=== PATIENT | female | born 1990 | race Two or more races ===

== ENCOUNTER 2020-07-09 19:55 | Emergency (ER) | payer OTHER ==
[~2020-07-09] VITALS: Ht 170.2 cm; Wt 59.0 kg
[2020-07-09] MEDS ORDERED: IBU600 MG (20:23)
[2020-07-10] MEDS ORDERED: ZEBUTAL 50-3251 EACH PO (01:09)
== END 2020-07-10 01:16 | disposition home or self-care (01) ==
LOC: ER 19:55
DX: G43.809 Other migraine, not intractable, without status migrainosus (principal); G44.89 Other headache syndrome

== ENCOUNTER 2022-02-21 16:43 | Emergency (ER) | payer OTHER ==
[~2022-02-21] VITALS: Ht 170.2 cm; Wt 57.2 kg
[~2022-02-21 16:43] MED LIST: IBU600 MG; ZEBUTAL 50-3251 EACH PO
[2022-02-21] MEDS ORDERED: MEDROLPACK PO (23:50)
[2022-02-21] MEDS ORDERED: DOLOGESIC 500-1 EACH PO (23:50)
== END 2022-02-21 23:56 | disposition home or self-care (01) ==
LOC: ER 16:43
DX: G43.009 Migraine without aura, not intractable, without status migrainosus (principal); Z91.018 Allergy to other foods

== ENCOUNTER 2024-04-06 19:05 | Emergency (ER) | payer OTHER ==
[~2024-04-06] VITALS: Ht 170.2 cm; Wt 59.0 kg
[~2024-04-06 19:05] MED LIST changes: +DOLOGESIC 500-1 EACH PO; +MEDROLPACK PO
[2024-04-06] MEDS ORDERED: FAMOTIDINE20 MG (19:16)
[2024-04-06] MEDS ORDERED: UBRELVY100 MG (19:16)
[2024-04-06] MEDS ORDERED: AIMOVIG AU70 MG/1 ML (19:17)
[2024-04-06] MEDS ORDERED: DEXAMETHASONE SODIUM PHOSPHATE 4 MG/ML VIAL IM STA (21:52)
[2024-04-06] MEDS ORDERED: ORPHENADRINE CITRATE 30 MG/ML AMPUL IM STA (21:53)
[2024-04-06] MEDS ORDERED: ORPHENADRINE CITRATE 30 MG/ML AMPUL ONE (22:04)
[2024-04-06] MEDS ORDERED: DEXAMETHASONE SODIUM PHOSPHATE 4 MG/ML VIAL ONE (22:05)
[2024-04-07] MEDS ORDERED: NORFLEX100MG PO (05:02)
[2024-04-07] MEDS ORDERED: KETO10TA2 PO (05:02)
== END 2024-04-07 05:07 ==
LOC: ER 19:06
DX: S09.8XXA Other specified injuries of head, initial encounter (principal); V49.88XA Car occupant (driver) (passenger) injured in other specified transport accidents, initial encounter; V89.2XXA Person injured in unspecified motor-vehicle accident, traffic, initial encounter; Y93.89 Activity, other specified; Y92.89 Other specified places as the place of occurrence of the external cause; Y99.8 Other external cause status

== ENCOUNTER 2024-08-20 09:30 | Inpatient (IN) | payer OTHER ==
[~2024-08-20] VITALS: Ht 170.2 cm; Wt 56.7 kg
[~2024-08-20 09:30] MED LIST changes: +AIMOVIG AU70 MG/1 ML; +FAMOTIDINE20 MG; +KETO10TA2 PO; +NORFLEX100MG PO; +UBRELVY100 MG
[2024-08-20 11:16] LABS: PH,URINE 7.5 (5.0-8.0); URINE APPEARANCE Cloudy; URINE BILIRRUBIN Negative (NEGATIVE); URINE BLOOD Negative; URINE COLOR Yellow; URINE GLUCOSE Negative (NEGATIVE); URINE KETONE Negative (NEGATIVE); URINE LEUKOCYTE Moderate; URINE NITRATE Negative; URINE PROTEIN Negative (NEGATIVE); URINE UROBILINOGEN 0.2 E.U./dl
[2024-08-20 11:17] LABS: HEMATOCRIT 42.6 % (36.0-45.00); HEMOGLOBIN 15.1 g/dL (12.0-15.00); MEAN CELL VOLUME 91.3 fL (80.00-100.00); MEAN CORPUSCULAR HEMOGLOBIN 32.4 pg (27.00-32.0); MEAN CORPUSCULAR HGB CONC 35.4 g/dl (32.0-36.0); PLATELET COUNT 220 K/uL (150-450); RED BLOOD COUNT 4.67 M/uL (4.00-6.00); RED CELL DISTRIBUTION WIDTH 12.7 % (11.5-14.5)
[2024-08-20 11:20] LABS: URINE BACTERIA 3803.8 uL (0.0-1933); URINE RBC 18.3 uL (0.0-20.8); URINE WBC 180.1 uL (0.0-23.2)
[2024-08-20 11:40] LABS: INR 1.09; PARTIAL THROMBOPLASTIN TIME 28.8 SECONDS (22.0-34.0); PROTHROMBIN TIME 11.8 SECONDS (9.0-11.5)
[2024-08-20 12:14] LABS: ALBUMIN 4.2 gm/dL (3.4-5.0); BILIRUBIN TOTAL 0.33 mg/dL (0.3-1.2); CALCIUM 9.8 mg/dL (8.5-10.1); CREATININE SERUM 0.59 mg/dL (0.55-1.02); GFR 117.38; GLOBULINA 3.4 G/DL (2.4-3.5); POTASSIUM 4.09 mEq/L (3.5-5.1); TOTAL PROTEIN 7.6 gm/dL (6.4-8.2); TSH 0.378 uIU/mL (0.358-3.74)
[2024-08-26] MEDS ORDERED: CEFOXITIN SODIUM 2,000 MG VIAL IV ONE (13:30)
[2024-08-26] MEDS ORDERED: POVIDONE-IODINE 118 ML BOTT TOP ONE (13:30)
[2024-08-26] MEDS ORDERED: PROMETHAZINE HCL 25 MG/ML AMPUL IV SCH (14:14)
[2024-08-26] MEDS ORDERED: MEPERIDINE HCL/PF 50 MG/ML VIAL IV SCH (14:14)
[2024-08-26] MEDS ORDERED: RINGERS SOLUTION,LACTATED 1,000 ML IV SCH (14:15)
[2024-08-26] MEDS ORDERED: MORPHINE SULFATE 4 MG/ML VIAL IV ONE (14:55)
[2024-08-26] MEDS ORDERED: SIMETHICONE 125 MG CAPSULE PO SCH (17:00)
[2024-08-26 17:24] LABS: HEMATOCRIT 40.1 % (36.0-45.00); HEMOGLOBIN 13.7 g/dL (12.0-15.00); MEAN CELL VOLUME 92.4 fL (80.00-100.00); MEAN CORPUSCULAR HEMOGLOBIN 31.5 pg (27.00-32.0); MEAN CORPUSCULAR HGB CONC 34.1 g/dl (32.0-36.0); PLATELET COUNT 170 K/uL (150-450); RED BLOOD COUNT 4.34 M/uL (4.00-6.00); RED CELL DISTRIBUTION WIDTH 12.8 % (11.5-14.5)
[2024-08-26 19:30] VITALS: BP 130/80; O2SAT 95
[2024-08-27] VITALS: BP 115/79; O2SAT 98
[2024-08-27] MEDS ORDERED: RINGERS SOLUTION,LACTATED 500 ML IV STA (06:58)
[2024-08-27 07:27] LABS: HEMATOCRIT 40.6 % (36.0-45.00); HEMOGLOBIN 13.8 g/dL (12.0-15.00); MEAN CELL VOLUME 92.5 fL (80.00-100.00); MEAN CORPUSCULAR HEMOGLOBIN 31.5 pg (27.00-32.0); PLATELET COUNT 208 K/uL (150-450); RED BLOOD COUNT 4.39 M/uL (4.00-6.00); RED CELL DISTRIBUTION WIDTH 12.6 % (11.5-14.5)
[2024-08-27 08:26] LABS: ALBUMIN 3.7 gm/dL (3.4-5.0); BILIRUBIN TOTAL 0.8 mg/dL (0.3-1.2); CALCIUM 9.3 mg/dL (8.5-10.1); CREATININE SERUM 0.74 mg/dL (0.55-1.02); GFR 90.38; POTASSIUM 4.26 mEq/L (3.5-5.1); TOTAL PROTEIN 6.7 gm/dL (6.4-8.2)
[2024-08-27] MEDS ORDERED: ACETAMINOPHEN WITH CODEINE 1 UDTAB TABLET PO PRN (08:45)
[2024-08-27] MEDS ORDERED: NAPROXEN 500 MG TABLET PO SCH (09:00)
[2024-08-27 09:31] VITALS: BP 122/87; O2SAT 100
[2024-08-27 16:00] VITALS: BP 106/75; O2SAT 100
[2024-08-28 00:12] VITALS: BP 94/64; O2SAT 97
[2024-08-28 08:23] VITALS: BP 95/65; O2SAT 99
[2024-08-28 11:12] LABS: HEMATOCRIT 31.9 % (36.0-45.00); HEMOGLOBIN 11.2 g/dL (12.0-15.00); MEAN CELL VOLUME 91.7 fL (80.00-100.00); MEAN CORPUSCULAR HEMOGLOBIN 32.3 pg (27.00-32.0); MEAN CORPUSCULAR HGB CONC 35.2 g/dl (32.0-36.0); PLATELET COUNT 172 K/uL (150-450); RED BLOOD COUNT 3.48 M/uL (4.00-6.00)
[2024-08-28 12:00] LABS: ALBUMIN 3.3 gm/dL (3.4-5.0); BILIRUBIN TOTAL 0.55 mg/dL (0.3-1.2); CALCIUM 9.1 mg/dL (8.5-10.1); CREATININE SERUM 0.59 mg/dL (0.55-1.02); GFR 117.38; GLOBULINA 2.5 G/DL (2.4-3.5); POTASSIUM 3.55 mEq/L (3.5-5.1); TOTAL PROTEIN 5.8 gm/dL (6.4-8.2)
[2024-08-28] MEDS ORDERED: KETOROLAC TROMETHAMINE 10 MG TABLET PO PRN (12:45)
[2024-08-28] MEDS ORDERED: KETOROLAC TROMETHAMINE 30 MG VIAL IM NR (13:00)
[2024-08-28 16:00] VITALS: BP 114/77; O2SAT 100
[2024-08-29 00:54] VITALS: BP 90/60; O2SAT 96
[2024-08-29 07:36] LABS: HEMATOCRIT 28.6 % (36.0-45.00); HEMOGLOBIN 9.9 g/dL (12.0-15.00); MEAN CELL VOLUME 92.5 fL (80.00-100.00); MEAN CORPUSCULAR HGB CONC 34.6 g/dl (32.0-36.0); PLATELET COUNT 165 K/uL (150-450); RED BLOOD COUNT 3.09 M/uL (4.00-6.00); RED CELL DISTRIBUTION WIDTH 12.8 % (11.5-14.5)
[2024-08-29 08:00] VITALS: BP 105/73; O2SAT 96
[2024-08-29] MEDS ORDERED: Cyanocobalamin/Mecobalamin 1 TAB.SL SL NR (11:00)
[2024-08-29] MEDS ORDERED: SOD FERRIC GLUC COMPLX/SUCROSE 62.5 MG/5 ML AMPUL IV NR (11:00)
[2024-08-29] MEDS ORDERED: ACETAMINOPHEN WITH CODEINE 1 UDTAB TABLET PO PRN (12:00)
[2024-08-29] MEDS ORDERED: ORPHENADRINE CITRATE 30 MG/ML AMPUL IM NR (13:00)
[2024-08-29 16:00] VITALS: BP 101/67; O2SAT 100
[2024-08-29 17:17] LABS: HEMATOCRIT 30.3 % (36.0-45.00); HEMOGLOBIN 10.5 g/dL (12.0-15.00); MEAN CELL VOLUME 92.6 fL (80.00-100.00); MEAN CORPUSCULAR HEMOGLOBIN 32.2 pg (27.00-32.0); MEAN CORPUSCULAR HGB CONC 34.7 g/dl (32.0-36.0); PLATELET COUNT 191 K/uL (150-450); RED BLOOD COUNT 3.28 M/uL (4.00-6.00); RED CELL DISTRIBUTION WIDTH 12.8 % (11.5-14.5)
[2024-08-29] MEDS ORDERED: ORPHENADRINE CITRATE 30 MG/ML AMPUL IM SCH (21:00)
[2024-08-29] MEDS ORDERED: MELATONIN 5 MG TABLET PO SCH (21:00)
[2024-08-29] MEDS ORDERED: POLYETHYLENE GLYCOL 3350 17 GM BLIST.PACK PO SCH (21:00)
[2024-08-30 00:28] VITALS: BP 92/63; O2SAT 95
[2024-08-30 07:09] LABS: COL EPI 102 SECONDS (82-175)
[2024-08-30 07:10] LABS: HEMATOCRIT 30.7 % (36.0-45.00); HEMOGLOBIN 10.6 g/dL (12.0-15.00); MEAN CELL VOLUME 92.7 fL (80.00-100.00); MEAN CORPUSCULAR HEMOGLOBIN 32.1 pg (27.00-32.0); MEAN CORPUSCULAR HGB CONC 34.7 g/dl (32.0-36.0); PLATELET COUNT 161 K/uL (150-450); RED BLOOD COUNT 3.31 M/uL (4.00-6.00); RED CELL DISTRIBUTION WIDTH 12.7 % (11.5-14.5)
[2024-08-30 07:14] LABS: INR 1.14; PROTHROMBIN TIME 12.3 SECONDS (9.0-11.5)
[2024-08-30 07:33] LABS: CREATININE SERUM 0.44 mg/dL (0.55-1.02); GFR 164.68; MAGNESIUM 1.9 mg/dL (1.8-2.4); PHOSPHOROUS 3.5 mg/dL (2.5-4.9); POTASSIUM 3.81 mEq/L (3.5-5.1)
[2024-08-30 07:38] VITALS: BP 91/62; O2SAT 96
[2024-08-30] MEDS ORDERED: SOD FERRIC GLUC COMPLX/SUCROSE 62.5 MG in 0.9 % SODIUM CHLORIDE 50 ML IV SCH (09:00)
[2024-08-30] MEDS ORDERED: NAPROXEN 500 MG TABLET PO SCH (09:00)
[2024-08-30] MEDS ORDERED: Cyanocobalamin/Mecobalamin 1 TAB.SL SL SCH (09:00)
[2024-08-30] MEDS ORDERED: FAMOtidine 20 MG TABLET PO SCH (09:00)
[2024-08-30 16:00] VITALS: BP 110/60; O2SAT 99
[2024-08-30 18:06] LABS: HEMATOCRIT 31.8 % (36.0-45.00); MEAN CELL VOLUME 92.1 fL (80.00-100.00); MEAN CORPUSCULAR HEMOGLOBIN 31.9 pg (27.00-32.0); MEAN CORPUSCULAR HGB CONC 34.6 g/dl (32.0-36.0); PLATELET COUNT 184 K/uL (150-450); RED BLOOD COUNT 3.45 M/uL (4.00-6.00); RED CELL DISTRIBUTION WIDTH 12.7 % (11.5-14.5)
[2024-08-30 20:00] VITALS: BP 115/82; O2SAT 98
[2024-08-31] VITALS: BP 99/69; O2SAT 97
[2024-08-31] MEDS ORDERED: MAXFE CAPLET1 EAC1 PO (08:50)
[2024-08-31] MEDS ORDERED: Tylenol #3 PO (08:50)
[2024-08-31] MEDS ORDERED: NAPR500T14 PO (08:50)
[2024-08-31 09:00] VITALS: BP 102/69; O2SAT 98
== END 2024-08-31 09:43 | disposition home or self-care (01) | DRG 742 ==
LOC: O/R 08-26 09:18 → OB/GYN 08-26 09:30 → SURG 08-26 19:01
PROVIDERS: Internal Medicine Geriatric Medicine; Obstetrics & Gynecology; ADMIT Obstetrics & Gynecology; ATTEND Obstetrics & Gynecology
PROC: 0UT70ZZ Resection of Bilateral Fallopian Tubes, Open Approach (ICD-10-PCS; 2024-08-26)
PROC: 0TJB8ZZ Inspection of Bladder, Via Natural or Artificial Opening Endoscopic (ICD-10-PCS; 2024-08-26)
PROC: 0UT90ZZ Resection of Uterus, Open Approach (ICD-10-PCS; principal; 2024-08-26 13:00)
PROC: BW21ZZZ Computerized Tomography (CT Scan) of Abdomen and Pelvis (ICD-10-PCS; 2024-08-29)
DX: D25.1 Intramural leiomyoma of uterus (principal); L76.32 Postprocedural hematoma of skin and subcutaneous tissue following other procedure; N72 Inflammatory disease of cervix uteri; N81.11 Cystocele, midline; G43.709 Chronic migraine without aura, not intractable, without status migrainosus; N92.0 Excessive and frequent menstruation with regular cycle; N94.5 Secondary dysmenorrhea; D50.0 Iron deficiency anemia secondary to blood loss (chronic); Z20.822 Contact with and (suspected) exposure to COVID-19

== ENCOUNTER 2024-09-07 12:05 | Outpatient (CLI) | payer OTHER ==
[~2024-09-07] VITALS: Ht 14.5 cm; Wt 55.3 kg
[~2024-09-07 12:05] MED LIST changes: +MAXFE CAPLET1 EAC1 PO; +NAPR500T14 PO; +Tylenol #3 PO
[2024-09-07 13:05] LABS: HEMATOCRIT 42.2 % (36.0-45.00); HEMOGLOBIN 14.6 g/dL (12.0-15.00); MEAN CELL VOLUME 91.3 fL (80.00-100.00); MEAN CORPUSCULAR HEMOGLOBIN 31.7 pg (27.00-32.0); MEAN CORPUSCULAR HGB CONC 34.7 g/dl (32.0-36.0); PLATELET COUNT 392 K/uL (150-450); RED BLOOD COUNT 4.62 M/uL (4.00-6.00); RED CELL DISTRIBUTION WIDTH 12.8 % (11.5-14.5)
[2024-09-07 13:23] LABS: INR 1.19; PARTIAL THROMBOPLASTIN TIME 28.4 SECONDS (22.0-34.0); PROTHROMBIN TIME 12.8 SECONDS (9.0-11.5)
[2024-09-07 13:48] VITALS: BP 108/75; O2SAT 100
[2024-09-07 14:27] LABS: ALBUMIN 4.6 gm/dL (3.4-5.0); BILIRUBIN TOTAL 0.65 mg/dL (0.3-1.2); CALCIUM 10.7 mg/dL (8.5-10.1); CREATININE SERUM 0.7 mg/dL (0.55-1.02); GFR 96.37; GLOBULINA 3.7 G/DL (2.4-3.5); POTASSIUM 4.59 mEq/L (3.5-5.1); TOTAL PROTEIN 8.3 gm/dL (6.4-8.2)
[2024-09-07 16:00] VITALS: BP 106/72
[2024-09-08] VITALS: BP 92/62
[2024-09-08 08:28] VITALS: BP 100/63
== END 2024-09-08 09:59 | disposition home or self-care (01) ==
LOC: OB/GYN 12:05 → OBS/DEL 12:05 → OB/GYN 09-08 09:59 → OBS/DEL 09-08 09:59 → EDSTATUS 09-23 14:37
PROVIDERS: ATTEND Obstetrics & Gynecology
DX: O99.519 Diseases of the respiratory system complicating pregnancy, unspecified trimester (principal); Z3A.00 Weeks of gestation of pregnancy not specified; R06.02 Shortness of breath
CPT/HCPCS: 71045; 71260; 74177; 76700; Q9965